=== PATIENT | female | born 2000 | race Caucasian/White ===

== ENCOUNTER 2024-03-02 02:09 | Emergency (ER) | payer OTHER ==
[~2024-03-02] VITALS: Ht 162.6 cm; Wt 61.2 kg
[2024-03-02 02:31] VITALS: BP_SYST 110; PULSE 100; RESP 16; TEMP 98.1; O2SAT 99
== END 2024-03-02 03:37 | disposition home or self-care (01) ==
LOC: SED 02:09
DX: F10.129 Alcohol abuse with intoxication, unspecified (principal); R11.10 Vomiting, unspecified; Y90.9 Presence of alcohol in blood, level not specified
CPT/HCPCS: 99283